=== PATIENT | male | born 1935 ===

== ENCOUNTER 2017-06-18 11:28 | Emergency (ER) | payer MEDICARE, MEDICAID ==
[2017-06-18 11:28] VITALS: BMI 27.8
[2017-06-18 11:56] VITALS: RESP 20; TEMP 97.5
--- NOTE | 2017-06-18 12:12 | C.PDOC ---
History Of Present Illness 06/18/2017 Patient is an 81 year old male, whose past medical history includes hypertension , who presents to the emergency department complaining of left eye redness since yesterday morning. Patient denies any itching, trauma, pain, or vision changes. Patient notes that he did stop taking his high blood pressure medication due to some mild discomfort on his abdomen (states his BP meds causes abd pain). Denies sneezing, coughing, vomiting, heavy lifting. States he is not on blood thinning medication(s). No other complaints were made. PMD: Dr. Juan Limon Chief Complaint (Nursing): Eye Problem History Per: Patient, Family History/Exam Limitations: no limitations Onset/Duration Of Symptoms: Days (1 day) Current Symptoms Are (Timing): Still Present Injury To Eye?: No Pain Scale Rating Of: 0 Quality: Other (red) Wears Contact Lens?: No Associated Symptoms: denies: Pain, Decreased Vision, Itching Past Medical History Reviewed: Historical Data, Nursing Documentation, Vital Signs Vital Signs: Last Vital Signs Temp 97.5 F L 06/18/17 11:43 Pulse 88 06/18/17 12:30 Resp 20 06/18/17 12:30 BP 134/86 06/18/17 12:30 Pulse Ox 98 06/18/17 12:30 - Medical History PMH: Arthritis, HTN - [facility] Procedures GAIT TRAINING/FUNCTIONAL AMBULATION TREATMENT (12/22/16) HOME MANAGEMENT TREATMENT (12/22/16) ROM & JT MOBILITY TREATMENT OF MUSCULOSK WHOLE (12/22/16) THERAPEUTIC EXERCISE TREATMENT OF MUSCULOSK LOW BACK/LE (12/22/16) Family History: States: Unknown Family Hx - Social History Hx Alcohol Use: No Hx Substance Use: No - Immunization History Hx Tetanus Toxoid Vaccination: No Hx Influenza Vaccination: No Hx Pneumococcal Vaccination: No Review Of Systems Constitutional: Negative for: Fever Eyes: Positive for: Redness (left eye). Negative for: Pain, Vision Change Cardiovascular: Negative for: Chest Pain Respiratory: Negative for: Cough, Shortness of Breath Gastrointestinal: Negative for: Vomiting Neurological: Negative for: Dizziness Physical Exam - Physical Exam Appears: Well, Non-toxic, No Acute Distress Skin: Normal Color, Warm, Dry Head: Atraumatic, Normacephalic Eye(s): bilateral: Normal Inspection, PERRL, EOMI, left: Other (subconjunctival hemorrhage to entire globe left eye) Ear(s): Bilateral: Normal Nose: Normal Lips: Normal Appearing Throat: Normal Neck: Normal Lymphatic: Deferred Chest: Symmetrical Cardiovascular: Rhythm Regular Respiratory: Normal Breath Sounds Gastrointestinal/Abdominal: Normal Exam Back: Normal Inspection Extremity: Normal ROM Neurological/Psych: Oriented x3, Normal Speech, Normal Motor Gait: Steady ED Course And Treatment O2 Sat by Pulse Oximetry: 97 (room air) Pulse Ox Interpretation: Normal Medical Decision Making Medical Decision Makin06/18/2017 Impression: left eye subconjunctival hemorrhage possible due to noncompliance of BP medication Plan: -- Supportive care; f/u with ophthalmology. I stressed importance of taking BP medication Re-evaluation: Discussed results and plan with patient. Patient understands results and is agreeable with plan. All questions answered. Patient will follow up with PMD to discuss dose of HTN medication. Disposition - Disposition Referrals: Forrest Elizondo MD [Staff Provider] - Disposition: HOME/ ROUTINE Disposition Time: 12:13 Condition: GOOD Additional Instructions: Mr. Coreas, thank you for letting us take care of you today. Return to the ER if your symptoms worsen, if you develop any blurry vision, eye pain or if any problems. Follow up with Dr. Limon (your regular doctor) next week to discuss your blood pressure treatment. Also follow up with the eye doctor. His name is Dr. Elizondo and the phone number is listed below. Call to make an appointment for next week. Instructions: Subconjunctival Hemorrhage (ED) Forms: [facility] (Cypriot), Gen Discharge Inst Cypriot Print Language: SAUDI ARABIAN - POA Present On Arrival: None - Clinical Impression Clinical Impression: Subconjunctival hemorrhage of left eye - Scribe Statement The provider has reviewed the documentation as recorded by the Scribe 06/18/2017 Scribe Attestation: Yasmin Quinn MD Scribe Attestation: All medical record entries made by the Scribe were at my direction and personally dictated by me. I have reviewed the chart and agree that the record accurately reflects my personal performance of the history, physical exam, medical decision making, and the department course for this patient. I have also personally directed, reviewed, and agree with the discharge instructions and disposition.
[2017-06-18 12:39] VITALS: BP 134/86; PULSE 88
[2017-06-18 14:42] VITALS: O2SAT 97
== END 2017-06-18 12:38 | disposition home or self-care (01) ==
LOC: C.ER 11:28
DX: H11.32 Conjunctival hemorrhage, left eye (principal)

== ENCOUNTER 2017-10-07 18:57 | Emergency (ER) | payer OTHER, MEDICAID ==
[2017-10-07 18:57] VITALS: BMI 27.8
[2017-10-07 19:44] VITALS: TEMP 98.2; O2SAT 95
[2017-10-07] MEDS ORDERED: Sodium Chloride 0.9% 1,000 ML IV STA (20:17)
--- NOTE | 2017-10-07 20:20 | C.PDOC ---
History Of Present Illness 81 y/o M c PMHx HTN, HLD p/w dysuria x 1 day. Patient states he is having trouble urinating as it hurts when he does so and only a small amount of urination. He also reports subjective fever yesterday, nonproductive cough and body aches x 2 days. Denies shaking chills, dyspnea, nausea, vomiting, diarrhea , constipation. Time Seen by Provider: 10/07/17 20:09 Chief Complaint (Nursing): Cough, Cold, Congestion Past Medical History Vital Signs: Last Vital Signs Temp 98.2 F 10/07/17 19:38 Pulse 74 10/07/17 22:37 Resp 18 10/07/17 22:37 BP 128/72 10/07/17 22:37 Pulse Ox 95 10/07/17 22:47 - Medical History PMH: Arthritis, HTN - [facility] Procedures GAIT TRAINING/FUNCTIONAL AMBULATION TREATMENT (12/22/16) HOME MANAGEMENT TREATMENT (12/22/16) ROM & JT MOBILITY TREATMENT OF MUSCULOSK WHOLE (12/22/16) THERAPEUTIC EXERCISE TREATMENT OF MUSCULOSK LOW BACK/LE (12/22/16) Family History: States: Unknown Family Hx - Social History Hx Alcohol Use: No Hx Substance Use: No - Immunization History Hx Tetanus Toxoid Vaccination: No Hx Influenza Vaccination: No Hx Pneumococcal Vaccination: No Review Of Systems Except As Marked, All Systems Reviewed And Found Negative. Cardiovascular: Negative for: Chest Pain Respiratory: Negative for: Shortness of Breath Physical Exam - Physical Exam Additional Physical Exam Comments: Constitutional: No acute distress. Head: Normocephalic. Atraumatic. Eyes: PERRL. ENT: Moist mucous membranes. Neck: Supple. Cardiovascular: Regular rate. Radial pulse 2+ bilaterally. Chest: No tenderness. Respiratory: Clear to auscultation bilaterally. GI: Suprapubic tenderness. Back: No CVA tenderness. Musculoskeletal: No tenderness or swelling of extremities. Skin: No rash. Neurologic: Oriented x 3. ED Course And Treatment - Laboratory Results Result Diagrams: 10/07/17 21:02 10/07/17 21:59 O2 Sat by Pulse Oximetry: 95 Medical Decision Making Medical Decision Making: Patient able to urinate in ED and normal creatinine. No UTI. Positive influenza , tamiflu administered. Discharged home, f/u urology, instructed to return to ED for inability to urinate or worsening illness. CXR no consolidation or infiltrate. Significant gas in bowel, appears similar to previous. Disposition - Disposition Referrals: Juan Limon MD [Staff Provider] - Disposition: HOME/ ROUTINE Disposition Time: 22:47 Condition: STABLE Additional Instructions: Ask Dr. Limon for a referral for urology. Prescriptions: Benzonatate [Tessalon Perles] 200 mg PO TID #30 sgl Oseltamivir Phosphate [Tamiflu] 75 mg PO BID #9 capsule Instructions: Influenza (ED) Forms: [facility] (Armenian) - Clinical Impression Clinical Impression: Influenza
[2017-10-07] MEDS ORDERED: Sodium Chloride 0.9% 1,000 ML ONE (21:03)
[2017-10-07 21:11] LABS: BASO # 0.1 K/uL (0.0-0.2); BASO % 1.6 % (0.0-2.0); EOS # 0.3 K/uL (0.0-0.7); EOS % 5.4 % (0.0-4.0); HEMOGLOBIN 13.9 g/dL (12.0-18.0); LYMPH % 18.6 % (20.0-40.0); MEAN CELL VOLUME 89.8 fL (80.0-94.0); MEAN CORPUSCULAR HEMOGLOBIN 30.6 pg (27.0-31.0); MEAN PLATELET VOLUME 8.5 fL (7.2-11.7); MONO # 0.5 K/uL (0.0-0.8); MONO % 9.1 % (0.0-10.0); NEUT # 3.5 K/uL (1.8-7.0); NEUT % 65.3 % (50.0-75.0); NRBC % 0.1 % (0.0-2.0); RBC 4.55 Mil/uL (4.40-5.90); RED CELL DISTRIBUTION WIDTH 13.6 % (11.5-14.5); WHITE BLOOD COUNT 5.3 K/uL (4.8-10.8)
[2017-10-07 21:38] LABS: SQUAMOUS EPITHIAL < 1 /hpf (0-5); URINE BILIRUBIN NEGATIVE (NEGATIVE); URINE BLOOD NEGATIVE (NEGATIVE); URINE CLARITY Hazy (Clear); URINE COLOR Yellow (YELLOW); URINE GLUCOSE (UA) NORMAL (Normal); URINE LEUKOCYTE ESTERASE NEG Leu/uL (Negative); URINE NITRATE NEGATIVE (NEGATIVE); URINE PROTEIN 2+ mg/dL (NEGATIVE)
[2017-10-07 22:14] LABS: ALBUMIN 3.4 g/dL (3.5-5.0); ALT/SGPT 22 U/L (21-72); AST/SGOT 21 U/L (17-59); BLOOD UREA NITROGEN 14 mg/dL (9-20); CALCIUM 7.9 mg/dl (8.6-10.4); GFR AFRICAN-AMERICAN > 60; GFR NON-AFRICAN AMERICAN > 60
[2017-10-07 22:40] VITALS: BP 128/72; PULSE 74; RESP 18
--- NOTE | 2017-10-08 08:31 | RAD ---
HISTORY: cough COMPARISON: Comparison is made to 09/08/2017 TECHNIQUE: Chest PA and lateral FINDINGS: LUNGS: No significant interval change in the lungs noted since the previous exam. Again noted is elevation of the left hemidiaphragm which may be due to diaphragmatic eventration or less diaphragmatic paralysis. PLEURA: No significant pleural effusion identified. No pneumothorax apparent. CARDIOVASCULAR: Normal. OSSEOUS STRUCTURES: No significant abnormalities. VISUALIZED UPPER ABDOMEN: Normal. OTHER FINDINGS: None. IMPRESSION: No significant interval change in the lungs noted since the previous exam.
== END 2017-10-07 23:03 | disposition home or self-care (01) ==
LOC: C.ER 18:57
DX: J11.1 Influenza due to unidentified influenza virus with other respiratory manifestations (principal)
CPT/HCPCS: 71020; 80053; 81001; 85025; 87086; 87804; 96361; 96374; 99285; J1885; J7040